=== PATIENT | female | born 1995 | race Hispanic/Latino ===

== ENCOUNTER 2017-09-24 21:04 | Emergency (ER) | payer SELFPAY ==
[2017-09-24 21:34] LABS: Bilirubin Negative (Negative); Blood, Urine Negative (Negative); Glucose, Urine (Dipstick) Negative (Negative); Ketone, Urine Negative (Negative); Nitrite Negative (Negative); Protein, Urine (Dipstick) Negative (Neg-Trace); Urobilinogen 0.2 mg/dL (0.2-1.0)
[2017-09-24 21:54] LABS: #Basophils 0.1 thou/uL (0.0-0.2); #Eosinphils 0.4 thou/uL (0.0-0.7); #Lymphocytes 3.9 thou/uL (1.20-3.40); #Monocytes 0.8 thou/uL (0.11-0.59); #Neutrophils 7.3 thou/uL (1.40-6.50); %Basophils 0.7 % (0.0-1.0); %Eosinophils 3.3 % (0.0-10.0); %Lymphocytes 31.2 % (21.0-51.0); %Monocytes 6.4 % (0.0-10.0); Hematocrit 41.6 % (36.0-47.0); Mean Platelet Volume 6.2 fL (7.4-10.4); White Blood Cell (WBC) Count 12.5 thou/uL (4.8-10.8)
[2017-09-24 22:19] LABS: ALT (SGPT) 15 U/L (8-55); AST (SGOT) 12 U/L (5-34); Alkaline Phosphatase 86 U/L (40-150); Anion Gap 12 mmol/L (10-20); BUN (Urea Nitrogen) 13 mg/dL (7.0-18.7); Bilirubin, Total 0.4 mg/dL (0.2-1.2); Calc. Creatinine Clearance 0 mL/min (70-130); Calcium 9.8 mg/dL (7.8-10.44); Carbon Dioxide 26 mmol/L (22-29); Chloride 104 mmol/L (98-107); Estimated GFR-MDRD Greater than 90; Globulin 3.7 g/dL (2.4-3.5); Lipase 40 U/L (8-78); Protein, Total 8.1 g/dL (6.0-8.3)
[2017-09-25] MEDS ORDERED: Ondansetron HCl/PF 4 MG/2 ML Vial ONE (00:48)
[2017-09-25] MEDS ORDERED: Lidocaine 2% Jelly 5 ML TUBE ONE (00:48)
[2017-09-25] MEDS ORDERED: Ondansetron ODT 4 MG TAB ONE (00:48)
[2017-09-25] MEDS ORDERED: Famotidine 20 MG TAB ONE (00:48)
[2017-09-25] MEDS ORDERED: Mag-Al 1200 mg/1200 mg/30 ML UDCUP ONE (00:48)
[2017-09-25] MEDS ORDERED: Lidocaine Viscous Sol 2% 15 ml UD Cup ONE (00:49)
== END 2017-09-25 01:40 | disposition home or self-care (01) ==
LOC: ERS 21:04
DX: R10.13 Epigastric pain (principal); F41.9 Anxiety disorder, unspecified
CPT/HCPCS: 36415; 80053; 81003; 81025; 83690; 85025; 99284; J2405; Q0162

== ENCOUNTER 2018-07-09 22:21 | Emergency (ER) | payer BC ==
[2018-07-09 23:06] LABS: Bilirubin Negative (Negative); Clarity CLEAR (Clear); Glucose, Urine (Dipstick) Negative (Negative); Leukocyte Negative (Negative); Nitrite Negative (Negative); Protein, Urine (Dipstick) Negative (Neg-Trace); Specific Gravity, Urine 1.026 (1.002-1.036)
[2018-07-09 23:07] LABS: Bacteria/HPF None Seen HPF (None Seen); Hyaline Casts/LPF 0-3 HYALINE CAST LPF (0-3 Hyaline); Pathc Cast-AUWi Flag 0.29 (0-2.49); Squamous Epithelial 0-3 HPF (0-3); WBC/HPF 0-3 HPF (0-3)
[2018-07-09 23:16] LABS: Blood, Urine Small (Negative); Sperm/HPF Rare HPF (None Seen); Yeast-All Forms None Seen HPF (None Seen)
--- NOTE | 2018-07-09 23:48 | ULT ---
TRANSABDOMINAL AND TRANSVAGINAL PELVIC ULTRASOUND WITH HOPE SCALE, COLOR FLOW AND SPECTRAL DOPPLER IM AGIN07/09/18 HISTORY: Vaginal bleeding. FINDINGS: A single live intrauterine gestation is seen and measurements corresponding for an estimated gestatio nal age of 8 weeks and MAME at 02/18/19. The crown-rump length measures 1.88 cm and the gestational sac diameter 2.41 cm and yolk sac diameter 0.61 cm. heart rate measures 160 beats per minute. No s ubchorionic hemorrhage is seen. No free fluid is noted in the cul-de-sac. Ovaries are visualized and have a normal appearance and demonstrates flow. IMPRESSION: Single live IUP of 8 weeks estimated gestational age and MAME at 02/18/19. POS: GURPREET
[2018-07-09 23:49] LABS: #Basophils 0.1 thou/uL (0.0-0.2); #Eosinphils 0.3 thou/uL (0.0-0.7); #Lymphocytes 3.1 thou/uL (1.20-3.40); #Monocytes 0.7 thou/uL (0.11-0.59); #Neutrophils 5.8 thou/uL (1.40-6.50); %Basophils 0.5 % (0.0-1.0); %Eosinophils 3.2 % (0.0-10.0); %Neutrophils 58.4 % (42.0-75.0); Hemoglobin 12.6 g/dL (12.0-16.0); Mean Corpuscular Volume 85.2 fL (78.0-98.0); Mean Platelet Volume 6.7 fL (7.4-10.4); Platelet Count 439 thou/uL (130-400); RBC Distribution Width 11.9 % (11.5-14.5); Red Blood Cell (RBC) Count 4.34 mill/uL (4.20-5.40); White Blood Cell (WBC) Count 9.9 thou/uL (4.8-10.8)
== END 2018-07-10 00:54 | disposition home or self-care (01) ==
LOC: ERS 22:21
DX: O20.0 Threatened abortion (principal); O99.341 Other mental disorders complicating pregnancy, first trimester; F41.9 Anxiety disorder, unspecified; Z3A.01 Less than 8 weeks gestation of pregnancy
CPT/HCPCS: 36415; 76856; 81003; 81015; 84702; 85025; 86900; 86901

== ENCOUNTER 2021-08-16 07:00 | Inpatient (IN) | payer BC ==
[2021-08-17 15:24] VITALS: BMI 39.9
[2021-08-21] MEDS ORDERED: ceFAZolin 2 GM/DEX 5% 100 ML BAG ONE (09:41)
[2021-08-21] MEDS ORDERED: Heparin 5,000 UNITS/ML VIAL ONE (09:41)
[2021-08-21] MEDS ORDERED: Midazolam HCl 2 mg/2 ml Vial ONE (11:24)
[2021-08-21] MEDS ORDERED: HYDROmorphone 0.5 MG/0.5 ML SYRINGE ONE (11:24)
[2021-08-21] MEDS ORDERED: Fentanyl 250 MCG/5 ML VIAL ONE (11:24)
[2021-08-21] MEDS ORDERED: Bupivacaine 0.25% HCL 30 ML VIAL ONE (11:34)
[2021-08-21] MEDS ORDERED: Lidocaine 1% w/Epinephrine 1:100K 20 ML VIAL ONE (11:34)
[2021-08-21] MEDS ORDERED: Rocuronium Bromide 10 MG/ML (10ML VIAL) ONE (11:50)
[2021-08-21] MEDS ORDERED: Lidocaine 1% PF 5 ML VIAL ONE (11:50)
[2021-08-21] MEDS ORDERED: PROPOFOL 200 MG/20 ML VIAL ONE (11:50)
[2021-08-21] MEDS ORDERED: Ondansetron PF 4 MG/2 ML Vial ONE (11:50)
[2021-08-21] MEDS ORDERED: Glycopyrrolate 0.2 MG/ML 5 ML SYRINGE ONE (11:50)
[2021-08-21] MEDS ORDERED: Dexamethasone 20 MG/5 ML VIAL ONE (11:50)
[2021-08-21] MEDS ORDERED: D5 1/2 NS w/20 mEq KCL 1,000 ML ONE (13:04)
[2021-08-21] MEDS ORDERED: Promethazine HCl 25 MG/ML VIAL ONE (13:04)
[2021-08-21] MEDS ORDERED: Fentanyl 100 MCG/2 ML VIAL ONE (13:08)
[2021-08-21] MEDS ORDERED: Morphine Sulfate 100 MG in Dextrose 5% in Water 98 ML IV SCH (13:15)
[2021-08-21] MEDS ORDERED: Ondansetron PF 4 MG/2 ML Vial IVP PRN (13:15)
[2021-08-21] MEDS ORDERED: Naloxone HCl 0.4 mg/ml Vial IV PRN (13:15)
[2021-08-21] MEDS ORDERED: diphenhydrAMINE 50 MG/ML VIAL IM/IV PRN (13:15)
[2021-08-21] MEDS ORDERED: diphenhydrAMINE 25 MG CAP PO PRN (13:15)
[2021-08-21] MEDS ORDERED: Dextrose 50% Abboject 50 ML SYRINGE SLOW IVP PRN (14:35)
[2021-08-21] MEDS ORDERED: diphenhydrAMINE 50 MG/ML VIAL IVP PRN (14:35)
[2021-08-21] MEDS ORDERED: Dextrose 5% in Water 1,000 ML IV PRN (14:35)
[2021-08-21] MEDS ORDERED: hydrALAZINE 20 MG/ML VIAL SLOW IVP PRN (14:35)
[2021-08-21] MEDS ORDERED: Hydrocodone-Acetamin 15 ML UDCUP PO PRN (14:35)
[2021-08-21] MEDS ORDERED: Promethazine HCl 25 MG/ML VIAL IM PRN (14:35)
[2021-08-21] MEDS: Ondansetron PF 4 MG/2 ML Vial IVP PRN (18:28)
[2021-08-21] MEDS ORDERED: Enoxaparin Sodium 40 MG/0.4 ML SYRINGE SC SCH (21:00)
[2021-08-21] MEDS: D5 1/2 NS w/20 mEq KCL 1,000 ML IV SCH (21:41)
[2021-08-22] MEDS: Ondansetron PF 4 MG/2 ML Vial IVP PRN ×2 (02:21→15:37)
[2021-08-22] MEDS: D5 1/2 NS w/20 mEq KCL 1,000 ML IV SCH ×4 (04:08→16:52)
[2021-08-22 04:33] LABS: #Lymphocytes 1.1 thou/uL (1.20-3.40); #Monocytes 0.8 thou/uL (0.11-0.59); #Neutrophils 15.4 thou/uL (1.40-6.50); %Basophils 0.1 % (0.0-1.0); %Lymphocytes 6.5 % (21.0-51.0); %Monocytes 4.3 % (0.0-10.0); %Neutrophils 89.1 % (42.0-75.0); Hemoglobin 10.1 g/dL (12.0-16.0); Mean Corpuscular HGB CONC 34.4 g/dL (32.0-36.0); Mean Corpuscular Hemoglobin 30.3 pg (27.0-31.0); Mean Corpuscular Volume 88.1 fL (78.0-98.0); Platelet Count 467 thou/uL (130-400); RBC Distribution Width 11.6 % (11.5-14.5); Red Blood Cell (RBC) Count 3.33 mill/uL (4.20-5.40); White Blood Cell (WBC) Count 17.3 thou/uL (4.8-10.8)
[2021-08-22 04:55] LABS: Anion Gap 12 mmol/L (10-20); BUN (Urea Nitrogen) 11 mg/dL (7.0-18.7); Calc. Creatinine Clearance 230 mL/min (70-130); Calcium 8.4 mg/dL (7.8-10.44); Carbon Dioxide 20 mmol/L (22-29); Chloride 102 mmol/L (98-107); Glucose 229 mg/dL (70-105); Potassium 4.6 mmol/L (3.5-5.1); Sodium 129 mmol/L (136-145)
[2021-08-22] MEDS ORDERED: Lorazepam 2 MG/ML VIAL SLOW IVP PRN ×2 (07:11→07:15)
[2021-08-22] MEDS: Fentanyl 100 MCG/2 ML VIAL SLOW IVP PRN ×4 (07:56→21:42)
[2021-08-22] MEDS: Ketorolac Tromethamine 30 MG/ML VIAL IVP PRN (08:05)
[2021-08-22] MEDS: Pantoprazole 40 MG VIAL IVP SCH (08:59)
[2021-08-22 15:08] LABS: Hemoglobin 8.4 g/dL (12.0-16.0)
[2021-08-23] MEDS: Fentanyl 100 MCG/2 ML VIAL SLOW IVP PRN ×2 (00:28→05:19)
[2021-08-23] MEDS: Ondansetron PF 4 MG/2 ML Vial IVP PRN (00:29)
[2021-08-23] MEDS: D5 1/2 NS w/20 mEq KCL 1,000 ML IV SCH ×2 (05:21→20:40)
[2021-08-23 05:52] LABS: #Basophils 0.1 thou/uL (0.0-0.2); #Lymphocytes 3.4 thou/uL (1.20-3.40); #Monocytes 1.1 thou/uL (0.11-0.59); #Neutrophils 8.6 thou/uL (1.40-6.50); %Basophils 0.5 % (0.0-1.0); %Eosinophils 0.2 % (0.0-10.0); %Lymphocytes 25.7 % (21.0-51.0); %Monocytes 8.6 % (0.0-10.0); %Neutrophils 65.1 % (42.0-75.0); Hemoglobin 7.1 g/dL (12.0-16.0); Mean Corpuscular HGB CONC 34.6 g/dL (32.0-36.0); Mean Corpuscular Hemoglobin 30.5 pg (27.0-31.0); Mean Corpuscular Volume 87.9 fL (78.0-98.0); Mean Platelet Volume 6.9 fL (7.4-10.4); Platelet Count 345 thou/uL (130-400); RBC Distribution Width 11.9 % (11.5-14.5); Red Blood Cell (RBC) Count 2.34 mill/uL (4.20-5.40); White Blood Cell (WBC) Count 13.2 thou/uL (4.8-10.8)
[2021-08-23] MEDS: Hydrocodone-Acetamin 15 ML UDCUP PO PRN ×2 (08:42→20:39)
[2021-08-23] MEDS: Pantoprazole 40 MG VIAL IVP SCH (08:42)
[2021-08-23] MEDS: Ketorolac Tromethamine 30 MG/ML VIAL IVP PRN (15:07)
[2021-08-24 05:07] LABS: Hemoglobin 6.9 g/dL (12.0-16.0); Platelet Count 287 thou/uL (130-400)
[2021-08-24] MEDS: Pantoprazole 40 MG VIAL IVP SCH (08:56)
[2021-08-24] MEDS: Hydrocodone-Acetamin 15 ML UDCUP PO PRN (09:32)
[2021-08-24 10:12] LABS: Hemoglobin 8.4 g/dL (12.0-16.0)
[2021-08-24] MEDS: D5 1/2 NS w/20 mEq KCL 1,000 ML IV SCH ×2 (11:15→16:32)
[2021-08-24 14:53] LABS: Hemoglobin 7.6 g/dL (12.0-16.0)
[2021-08-24] MEDS ORDERED: FLU VACC QS2021-22(6MOS UP)/PF 60 MCG/0.5 ML SYRINGE IM ONE (17:00)
[2021-08-24 20:49] LABS: Hemoglobin 8.2 g/dL (12.0-16.0)
[2021-08-24] MEDS: Ketorolac Tromethamine 30 MG/ML VIAL IVP PRN (21:51)
[2021-08-25] MEDS: D5 1/2 NS w/20 mEq KCL 1,000 ML IV SCH (00:29)
[2021-08-25 02:55] LABS: Hemoglobin 7.7 g/dL (12.0-16.0)
[2021-08-25] MEDS: Pantoprazole 40 MG VIAL IVP SCH (08:51)
[2021-08-25 09:27] LABS: Hemoglobin 8.7 g/dL (12.0-16.0)
[2021-08-25] MEDS: Hydrocodone-Acetamin 15 ML UDCUP PO PRN ×2 (11:05→17:56)
[2021-08-25] MEDS ORDERED: Lorazepam 2 MG/ML VIAL SLOW IVP PRN (23:09)
[2021-08-25 23:38] LABS: Hemoglobin 7.7 g/dL (12.0-16.0)
[2021-08-26 06:26] LABS: #Basophils 0.1 thou/uL (0.0-0.2); #Eosinphils 0.2 thou/uL (0.0-0.7); #Lymphocytes 1.9 thou/uL (1.20-3.40); #Monocytes 0.7 thou/uL (0.11-0.59); #Neutrophils 5.3 thou/uL (1.40-6.50); %Basophils 0.8 % (0.0-1.0); %Eosinophils 2.7 % (0.0-10.0); %Lymphocytes 23.2 % (21.0-51.0); %Monocytes 8.1 % (0.0-10.0); %Neutrophils 65.2 % (42.0-75.0); Hemoglobin 8.6 g/dL (12.0-16.0); Mean Corpuscular HGB CONC 35.3 g/dL (32.0-36.0); Mean Corpuscular Hemoglobin 31.4 pg (27.0-31.0); Mean Platelet Volume 6.1 fL (7.4-10.4); Platelet Count 395 thou/uL (130-400); RBC Distribution Width 12.3 % (11.5-14.5); Red Blood Cell (RBC) Count 2.74 mill/uL (4.20-5.40); White Blood Cell (WBC) Count 8.2 thou/uL (4.8-10.8)
[2021-08-26] MEDS: D5 1/2 NS w/20 mEq KCL 1,000 ML IV SCH (07:44)
[2021-08-26] MEDS: Pantoprazole 40 MG VIAL IVP SCH (08:38)
[2021-08-26] MEDS: Hydrocodone-Acetamin 15 ML UDCUP PO PRN (09:20)
[2021-08-26] MEDS: Ondansetron PF 4 MG/2 ML Vial IVP PRN (11:10)
[2021-08-26 11:38] VITALS: BP 104/70; TEMP 98.1
== END 2021-08-26 12:40 | disposition home or self-care (01) | DRG 620 ==
LOC: SURG A 08-21 09:23
PROVIDERS: ADMIT Surgery; ATTEND Surgery
PROC: 0DB64Z3 Excision of Stomach, Percutaneous Endoscopic Approach, Vertical (ICD-10-PCS; principal; 2021-08-21)
PROC: 8E0W4CZ Robotic Assisted Procedure of Trunk Region, Percutaneous Endoscopic Approach (ICD-10-PCS; 2021-08-21)
PROC: 30233N1 Transfusion of Nonautologous Red Blood Cells into Peripheral Vein, Percutaneous Approach (ICD-10-PCS; 2021-08-23)
DX: E66.01 Morbid (severe) obesity due to excess calories (principal); L76.22 Postprocedural hemorrhage of skin and subcutaneous tissue following other procedure; Z20.822 Contact with and (suspected) exposure to COVID-19; Z28.21 Immunization not carried out because of patient refusal; Z68.41 Body mass index [BMI] 40.0-44.9, adult; Y83.8 Other surgical procedures as the cause of abnormal reaction of the patient, or of later complication, without mention of misadventure at the time of the procedure; F41.0 Panic disorder [episodic paroxysmal anxiety]
CPT/HCPCS: 36415; 36430; 74177; 80048; 85014; 85018; 85025; 85049; 86850; 86900; 86901; 88307; 93005; 93010; C9113; J1100; J1170; J1644; J1650; J1885; J2060; J2250; J2405; J2550; J2704; J3010; J3480; P9016; S0020

== ENCOUNTER 2021-08-16 07:39 | Outpatient (CLI) | payer BC ==
[2021-08-16 13:12] LABS: #Basophils 0.1 10x3/uL (0.0-0.2); #Eosinphils 0.2 10x3/uL (0.0-0.5); #Monocytes 0.6 10x3/uL (0.0-1.1); #Neutrophils 5.3 10x3/uL (1.5-8.4); %Basophils 0.6 % (0.0-2.0); %Eosinophils 2.7 % (0.0-6.0); %Lymphocytes 26.9 % (18.0-47.0); %Monocytes 6.5 % (0.0-10.0); %Neutrophils 62.9 % (40.0-75.0); Hemoglobin 13.2 g/dL (12.0-15.5); Mean Corpuscular HGB CONC 33.5 g/dL (32.0-36.0); Mean Corpuscular Hemoglobin 29.1 pg (27.0-33.0); Mean Platelet Volume 9.9 fl (7.4-10.4); Platelet Count 413 10x3/uL (150-450); RBC Distribution Width 12.4 % (11.5-14.5); Red Blood Cell (RBC) Count 4.53 10x6/uL (3.90-5.03); White Blood Cell (WBC) Count 8.4 10x3/uL (3.5-10.5)
[2021-08-16 13:31] LABS: BHCG - Serum Negative (NEGATIVE); Pregs Control Background? CLEAR/WHITE (CLR/WHITE); Pregs Control Bar Appear? YES (CONTROL BAR)
[2021-08-16 13:40] LABS: ALT (SGPT) 22 U/L (8-55); AST (SGOT) 18 U/L (5-34); Albumin 4.6 g/dL (3.5-5.0); Alkaline Phosphatase 64 U/L (40-110); Anion Gap 15 mmol/L (10-20); BUN (Urea Nitrogen) 12 mg/dL (7.0-18.7); Calc. Creatinine Clearance 0 mL/min (70-130); Calcium 9.4 mg/dL (7.8-10.44); Carbon Dioxide 23 mmol/L (22-29); Chloride 103 mmol/L (98-107); Globulin 3.1 g/dL (2.4-3.5); Glucose 65 mg/dL (70-105); Potassium 4.6 mmol/L (3.5-5.1); Protein, Total 7.7 g/dL (6.0-8.3); Sodium 136 mmol/L (136-145)
[2021-08-16 20:49] LABS: Hemoglobin A1c 4.8 % (4.0-6.0)
[2021-08-17 11:56] LABS: SARS-CoV-2 PCR by NAA Not Detected (NotDetected)
== END 2021-08-16 07:40 | disposition home or self-care (01) ==
LOC: LABBT 07:39
PROVIDERS: ATTEND Surgery
DX: Z01.818 Encounter for other preprocedural examination (principal); E66.01 Morbid (severe) obesity due to excess calories; Z20.822 Contact with and (suspected) exposure to COVID-19
CPT/HCPCS: 71046; 80053; 83036; 84703; 85025; 93005; 93010; U0003; U0005

== ENCOUNTER 2023-06-14 08:44 | Observation (INO) | payer BC ==
[2023-06-14 09:23] LABS: #Basophils 0.1 thou/uL (0.0-0.2); #Eosinphils 0.2 thou/uL (0.0-0.7); #Monocytes 0.4 thou/uL (0.11-0.59); #Neutrophils 2.6 thou/uL (1.40-6.50); %Eosinophils 3.8 % (0.0-10.0); %Lymphocytes 35.1 % (21.0-51.0); %Monocytes 7.2 % (0.0-10.0); %Neutrophils 52.7 % (42.0-75.0); Hematocrit 38.2 % (36.0-47.0); Hemoglobin 12.9 g/dL (12.0-16.0); Mean Corpuscular HGB CONC 33.8 g/dL (32.0-36.0); Mean Corpuscular Hemoglobin 30.9 pg (27.0-31.0); Mean Corpuscular Volume 91.4 fl (78.0-98.0); Mean Platelet Volume 9.2 fL (7.4-10.4); Platelet Count 289 10x3/uL (130-400); RBC Distribution Width 12.7 % (11.5-14.5); Red Blood Cell (RBC) Count 4.18 mill/uL (4.20-5.40)
[2023-06-14 09:37] LABS: Prothrombin Time 13.5 sec (12.0-14.7)
[2023-06-14 09:52] LABS: ALT (SGPT) 11 U/L (8-55); AST (SGOT) 11 U/L (5-34); Albumin 4.3 g/dL (3.5-5.0); Alkaline Phosphatase 49 U/L (40-110); Anion Gap 12 mmol/L (10-20); BUN (Urea Nitrogen) 12 mg/dL (7.0-18.7); Bilirubin, Total 1.1 mg/dL (0.2-1.2); Calc. Creatinine Clearance 156 mL/min (70-130); Calcium 9.3 mg/dL (7.8-10.44); Carbon Dioxide 26 mmol/L (22-29); Chloride 105 mmol/L (98-107); Estimated GFR 124; Globulin 2.6 g/dL (2.4-3.5); Glucose 72 mg/dL (70-105); Potassium 3.8 mmol/L (3.5-5.1); Protein, Total 6.9 g/dL (6.0-8.3); Sodium 139 mmol/L (136-145)
[2023-06-14] MEDS ORDERED: fentaNYL 50 mcg/mL 1 mL Vial ONE ×2 (09:59→11:57)
[2023-06-14] MEDS ORDERED: Sodium Bicarbonate 2.5 MEQ/5 ML VIAL ONE ×3 (10:00→10:35)
[2023-06-14] MEDS ORDERED: Midazolam HCl 2 mg/2 ml Vial ONE (10:00)
[2023-06-14] MEDS ORDERED: Lidocaine 1% PF 5 ML VIAL ONE (10:00)
[2023-06-14] MEDS ORDERED: Ondansetron PF 4 MG/2 ML Vial ONE (10:53)
[2023-06-14 13:04] LABS: Hematocrit 37.1 % (36.0-47.0); Hemoglobin 12.5 g/dL (12.0-16.0); Mean Corpuscular HGB CONC 33.7 g/dL (32.0-36.0); Mean Corpuscular Hemoglobin 30.9 pg (27.0-31.0); Mean Corpuscular Volume 91.6 fl (78.0-98.0); Mean Platelet Volume 9.2 fL (7.4-10.4); Platelet Count 302 10x3/uL (130-400); RBC Distribution Width 12.7 % (11.5-14.5); Red Blood Cell (RBC) Count 4.05 mill/uL (4.20-5.40); White Blood Cell (WBC) Count 5.7 10x3/uL (4.8-10.8)
[2023-06-14] MEDS ORDERED: Morphine 2 MG/ML VIAL SLOW IVP PRN ×2 (13:27→13:29)
[2023-06-14] MEDS ORDERED: Midazolam HCl 2 mg/2 ml Vial IVP SCH (13:30)
[2023-06-14] MEDS ORDERED: Sodium Chloride 0.9% 1,000 ML IV SCH (13:30)
[2023-06-14] MEDS ORDERED: fentaNYL 50 mcg/mL 1 mL Vial SLOW IVP SCH (13:30)
[2023-06-14] MEDS ORDERED: Ondansetron PF 4 MG/2 ML Vial IVP SCH (13:30)
[2023-06-14] MEDS ORDERED: Morphine 2 MG/ML VIAL ONE (13:57)
[2023-06-14] MEDS ORDERED: diphenhydrAMINE 25 MG CAP PO PRN (15:18)
[2023-06-14] MEDS ORDERED: Acetaminophen 500 MG TAB ONE (15:59)
[2023-06-14] MEDS: Acetaminophen 500 MG TAB PO PRN (16:03)
[2023-06-14] MEDS: Morphine 2 MG/ML VIAL SLOW IVP PRN (18:25)
[2023-06-14 19:04] LABS: #Basophils 0.1 thou/uL (0.0-0.2); #Eosinphils 0.2 thou/uL (0.0-0.7); #Monocytes 0.5 thou/uL (0.11-0.59); %Basophils 0.5 % (0.0-1.0); %Eosinophils 1.9 % (0.0-10.0); %Lymphocytes 30.4 % (21.0-51.0); Hematocrit 35.6 % (36.0-47.0); Hemoglobin 12.1 g/dL (12.0-16.0); Mean Corpuscular Hemoglobin 30.9 pg (27.0-31.0); Mean Platelet Volume 9.2 fL (7.4-10.4); Platelet Count 268 10x3/uL (130-400); RBC Distribution Width 12.7 % (11.5-14.5); Red Blood Cell (RBC) Count 3.91 mill/uL (4.20-5.40); White Blood Cell (WBC) Count 9.7 10x3/uL (4.8-10.8)
[2023-06-15 01:12] LABS: Hematocrit 34.8 % (36.0-47.0); Hemoglobin 11.7 g/dL (12.0-16.0); Mean Corpuscular HGB CONC 33.6 g/dL (32.0-36.0); Mean Corpuscular Hemoglobin 30.8 pg (27.0-31.0); Mean Corpuscular Volume 91.6 fl (78.0-98.0); Mean Platelet Volume 9.5 fL (7.4-10.4); Platelet Count 262 10x3/uL (130-400); White Blood Cell (WBC) Count 7.6 10x3/uL (4.8-10.8)
[2023-06-15] MEDS: Morphine 2 MG/ML VIAL SLOW IVP PRN (06:23)
[2023-06-15] MEDS: Ondansetron PF 4 MG/2 ML Vial IVP PRN ×2 (06:25→11:59)
[2023-06-15 08:06] LABS: #Basophils 0.1 thou/uL (0.0-0.2); #Eosinphils 0.2 thou/uL (0.0-0.7); #Monocytes 0.5 thou/uL (0.11-0.59); #Neutrophils 4.6 thou/uL (1.40-6.50); %Basophils 0.7 % (0.0-1.0); %Eosinophils 2.4 % (0.0-10.0); %Lymphocytes 25.8 % (21.0-51.0); %Monocytes 6.3 % (0.0-10.0); %Neutrophils 64.5 % (42.0-75.0); Hematocrit 37.5 % (36.0-47.0); Hemoglobin 12.8 g/dL (12.0-16.0); Mean Corpuscular HGB CONC 34.1 g/dL (32.0-36.0); Mean Corpuscular Hemoglobin 31.4 pg (27.0-31.0); Mean Corpuscular Volume 92.1 fl (78.0-98.0); Mean Platelet Volume 9.4 fL (7.4-10.4); Platelet Count 291 10x3/uL (130-400); RBC Distribution Width 12.8 % (11.5-14.5); Red Blood Cell (RBC) Count 4.07 mill/uL (4.20-5.40); White Blood Cell (WBC) Count 7.1 10x3/uL (4.8-10.8)
[2023-06-15 08:07] LABS: Hematocrit 37.4 % (36.0-47.0); Hemoglobin 12.4 g/dL (12.0-16.0); Mean Corpuscular HGB CONC 33.2 g/dL (32.0-36.0); Mean Corpuscular Hemoglobin 30.9 pg (27.0-31.0); Mean Corpuscular Volume 93.3 fl (78.0-98.0); Mean Platelet Volume 9.4 fL (7.4-10.4); Platelet Count 287 10x3/uL (130-400); RBC Distribution Width 12.7 % (11.5-14.5); Red Blood Cell (RBC) Count 4.01 mill/uL (4.20-5.40); White Blood Cell (WBC) Count 7.2 10x3/uL (4.8-10.8)
[2023-06-15] MEDS: Acetaminophen 500 MG TAB PO PRN (11:50)
[2023-06-15 18:31] VITALS: BP 108/72; TEMP 98.1
[2023-06-15 20:10] VITALS: BMI 25.8
== END 2023-06-15 20:30 | disposition home or self-care (01) ==
LOC: CT 08:44 → T4-A 15:29
PROVIDERS: ADMIT Urology; ATTEND Urology
PROC: 0TB03ZX Excision of Right Kidney, Percutaneous Approach, Diagnostic (ICD-10-PCS; principal; 2023-06-15)
DX: C64.1 Malignant neoplasm of right kidney, except renal pelvis (principal); J93.9 Pneumothorax, unspecified; E66.9 Obesity, unspecified; Z87.59 Personal history of other complications of pregnancy, childbirth and the puerperium; Z68.25 Body mass index [BMI] 25.0-25.9, adult; Z90.49 Acquired absence of other specified parts of digestive tract; Z98.84 Bariatric surgery status; Z79.899 Other long term (current) drug therapy
CPT/HCPCS: 36415; 50200; 71046; 77012; 80053; 85025; 85027; 85610; 88305; 88333; 88334; 88341; 88342; 93005; 93010; 96374; 96375; 96376; G0378; J2250; J2272; J2405; J3010